=== PATIENT | male | born 1955 | race Caucasian/White ===

== ENCOUNTER → 2022-03-25 | Outpatient (CLI) | payer MEDICARE ==
[~2022-03-25] MED LIST: LIPITOR TAB 2020 MG PO; PROTONIX40 MG PO
== END ==
LOC: OPSV2 09:00
DX: Z01.810 Encounter for preprocedural cardiovascular examination (principal); Z86.79 Personal history of other diseases of the circulatory system; I49.9 Cardiac arrhythmia, unspecified; R94.31 Abnormal electrocardiogram [ECG] [EKG]
CPT/HCPCS: 93005